=== PATIENT | female | born 1955 | race Caucasian/White ===

== ENCOUNTER 2016-07-25 09:00 | Emergency (ER) | payer OTHER, MEDICAID ==
[~2016-07-25] VITALS: Ht 154.9 cm; Wt 56.7 kg
[~2016-07-25 09:00] MED LIST: ASPI-524 PO; CETI-101 PO; CO Q 10; DULO60CA41; ESZO3TAB10 PO; FOLI-43 PO; INSU10VI5; IRON1TAB90; LOVA20TA2 PO; METO50TA7 PO; MULT1TAB PO; NEU400 PO; OLEPTRO; OMEG1CAP48 PO; OSCAL; PANT40TA4 PO; PLA200 PO; PRED5TAB3 PO; PREG150C PO; SYN75 PO; VIT1CAPS25 PO; VITAMIN B1; ZOLP12.52 PO; [UNRECOGNIZED DRUG - CODE] PO; [UNRECOGNIZED DRUG - CODE] PO
[2016-07-25 09:10] VITALS: BP_SYST 129
[2016-07-25] MEDS ORDERED: DIPHENHYDRAMINE INJ 50 MG/ML VIAL IVP ONE (09:30)
[2016-07-25] MEDS ORDERED: LORazepam 2 MG/ML VIAL (FOR ER USE) IVP ONE (09:30)
[2016-07-25] MEDS ORDERED: LIDOCAINE/EPI 2% 1:100000 20 ML VIAL INJ ONE (09:45)
[2016-07-25] MEDS ORDERED: LIDOCAINE/PRILOCAINE 5 GM CREAM (EMLA) TP ONE (09:45)
[2016-07-25] MEDS ORDERED: DIPH-TET-PERTUS Vaccine 0.5 ML VIAL (ADACEL) I.M. ONE (09:45)
[2016-07-25 12:17] VITALS: BP_SYST 129
== END 2016-07-25 12:17 | disposition home or self-care (01) ==
LOC: SED 09:00
DX: S01.21XA Laceration without foreign body of nose, initial encounter (principal); Z79.899 Other long term (current) drug therapy; W01.0XXA Fall on same level from slipping, tripping and stumbling without subsequent striking against object, initial encounter; Y93.89 Activity, other specified; Y92.89 Other specified places as the place of occurrence of the external cause; Y99.8 Other external cause status
CPT/HCPCS: 70450; 90471; 90715; 96374; 96375; 99284; J1200; J2060